=== PATIENT | female | born 1975 | race Caucasian/White ===

== ENCOUNTER 2020-03-25 09:51 | Outpatient (REF) | payer MEDICAID, SELFPAY ==
--- NOTE | 2020-03-25 10:03 | XR_ITS ---
EXAMINATION: XR HAND WRIST, LEFT CLINICAL INFORMATION: Injury, pain, left hand and wrist COMPARISON: None TECHNIQUE: 3 views of the combined left hand and wrist are obtained along with navicular view left breast for a total of 4 views. FINDINGS: There is no fracture, dislocation, destructive process. The ulnar variance is neutral. There is a punctate subchondral cysts proximal lunate and a 3 mm benign cyst with circumscribed margins proximal capitate. There is no carpal joint narrowing or erosive change. Small benign triangular calcification 2 x 4 mm just distal to the carpal navicular is likely related to ligamentous calcification. The MCP and interphalangeal joints show no narrowing or erosive change. IMPRESSION: 1. No joint narrowing or erosive changes. 2. Small benign triangular calcification 2 x 4 mm adjacent to distal pole carpal navicular likely ligamentous.
== END 2020-03-25 09:52 | disposition home or self-care (01) ==
LOC: HO.XRAY 09:51
PROVIDERS: Visit Provider General Practice
DX: S69.92XD Unspecified injury of left wrist, hand and finger(s), subsequent encounter (principal); X58.XXXA Exposure to other specified factors, initial encounter; Y93.9 Activity, unspecified; Y92.9 Unspecified place or not applicable; Y99.9 Unspecified external cause status
CPT/HCPCS: 73110; 73130